=== PATIENT | female | born 1975 | race Caucasian/White ===

== ENCOUNTER 2019-05-17 05:48 | Day surgery (SDC) | payer OTHER ==
[2019-05-13 12:33] VITALS: BMI 33.0
[~2019-05-17 05:48] MED LIST: LACTATED RINGERS 1,000 ML IV SCH; LIDOCAINE 1% 20 ML VIAL (10MG/ML) FOR IV START INTRADERMA PRN; MIDAZOLAM 2 MG/2 ML VIAL IV PRN
[2019-05-17 06:32] VITALS: RESP 18; TEMP 97.1
[2019-05-17 06:45] LABS: Glucose,Whole Blood 117 mg/dL (75-99)
[2019-05-17] MEDS ORDERED: PROPOFOL 10 MG/ML 20 ML VIAL IV ONE (07:11)
--- NOTE | 2019-05-17 07:44 | PCN ---
PROCEDURE NOTE PROCEDURE: Bone marrow aspirate and biopsy. INDICATION: Leukocytosis. After obtaining consent from the patient, the procedure was performed in the endoscopy suite under general anesthesia performed by Anesthesia Team. The patient was put in the left lateral decubitus position. The right posterior iliac crest was localized, skin was cleansed with ChloraPrep, all sterile procedures were followed. Two mL of 2% Xylocaine were used for local anesthetic. Bone marrow needle was inserted, 15 mL of aspirate was obtained about 2 cm core biopsy was obtained without any difficulties. Pressure applied afterwards. There was negligible blood loss. Patient tolerated the procedure very well without any immediate without any immediate complications. MMODL / IJN: [id number] /
[2019-05-17 07:50] VITALS: BP 143/85; PULSE 64
[2019-05-17 08:33] LABS: Basophils # (A) 0.1 k/uL (0-0.2); Basophils % (A) 1 %; Eosinophils # (A) 0.3 k/uL (0-0.7); Eosinophils % (A) 3 %; HCT 36.2 % (34.0-46.0); Lymphocytes # (A) 3.1 k/uL (1.0-4.8); Lymphocytes % (A) 26 %; MCH 29.1 pg (25.0-35.0); MCHC 33.3 g/dL (31.0-37.0); MCV 87.4 fL (80.0-100.0); Mean Platelet Volume 7.1; Monocytes # (A) 0.7 k/uL (0-1.0); Monocytes % (A) 6 %; Neutrophils # (A) 7.4 k/uL (1.3-7.7); Neutrophils % (A) 62 %; Platelet Count 378 k/uL (150-450); RBC 4.14 m/uL (3.80-5.40); RDW 14.4 % (11.5-15.5); WBC 11.8 k/uL (3.8-10.6)
== END 2019-05-17 08:10 | disposition home or self-care (01) ==
LOC: OR 05:48
PROVIDERS: ATTEND Internal Medicine Hematology & Oncology
DX: Q99.1 46, XX true hermaphrodite (principal); E11.9 Type 2 diabetes mellitus without complications; E78.5 Hyperlipidemia, unspecified; J45.909 Unspecified asthma, uncomplicated; K21.9 Gastro-esophageal reflux disease without esophagitis; M19.90 Unspecified osteoarthritis, unspecified site; I10 Essential (primary) hypertension; Z83.2 Family history of diseases of the blood and blood-forming organs and certain disorders involving the immune mechanism; Z80.3 Family history of malignant neoplasm of breast; Z80.42 Family history of malignant neoplasm of prostate; Z80.41 Family history of malignant neoplasm of ovary; Z80.1 Family history of malignant neoplasm of trachea, bronchus and lung; Z87.891 Personal history of nicotine dependence; Z79.84 Long term (current) use of oral hypoglycemic drugs; Z79.899 Other long term (current) drug therapy; Z88.6 Allergy status to analgesic agent; Z88.5 Allergy status to narcotic agent; Z88.0 Allergy status to penicillin
CPT/HCPCS: 81025; 85025; 38222; J2704

== ENCOUNTER → 2019-10-13 | Outpatient (CLI) | payer OTHER ==
[2019-10-13 11:28] LABS: Basophils # (A) 0.2 k/uL (0-0.2); Basophils % (A) 2 %; Eosinophils # (A) 0.3 k/uL (0-0.7); Eosinophils % (A) 2 %; HCT 43.6 % (34.0-46.0); HGB 14.5 gm/dL (11.4-16.0); Lymphocytes # (A) 2.9 k/uL (1.0-4.8); Lymphocytes % (A) 22 %; MCH 30.8 pg (25.0-35.0); MCHC 33.2 g/dL (31.0-37.0); MCV 92.8 fL (80.0-100.0); Mean Platelet Volume 6.1; Monocytes # (A) 0.7 k/uL (0-1.0); Monocytes % (A) 5 %; Neutrophils % (A) 68 %; Platelet Count 433 k/uL (150-450); RBC 4.69 m/uL (3.80-5.40); RDW 12.8 % (11.5-15.5); WBC 13.2 k/uL (3.8-10.6)
== END | disposition home or self-care (01) ==
LOC: LABPAT 10:30
PROVIDERS: ATTEND Obstetrics & Gynecology
DX: Z01.812 Encounter for preprocedural laboratory examination (principal); Z01.818 Encounter for other preprocedural examination; N92.0 Excessive and frequent menstruation with regular cycle
CPT/HCPCS: 36415; 85025; 93005

== ENCOUNTER 2019-11-08 07:58 | Day surgery (SDC) | payer OTHER ==
[2019-10-15 14:08] VITALS: BMI 34.4
--- NOTE | 2019-11-02 14:18 | HP ---
HISTORY AND PHYSICAL H and P for surgery this upcoming Friday, the . This is a 44-year-old, white female, zero, who presented with heavy, long, clotty menses with clots. The patient underwent an endometrial biopsy in the office revealing a benign polyp, along with proliferative endometrial tissue. After considering all options, she would like to proceed with hysteroscopy, polypectomy, and endometrial ablation. All risks and benefits of the procedure have been discussed in detail, all questions answered. PAST MEDICAL HISTORY: Significant for anemia, arthritis, asthma, diabetes, hyperlipidemia, hypertension, polycystic ovarian syndrome. PAST SURGICAL HISTORY: Significant for appendectomy, colonoscopy, hernia repair, knee surgery, ovarian surgery, and tonsillectomy. CURRENT MEDICATIONS: 1. Actos 15 mg tablet daily. 2. Amaryl 4 mg tablet by mouth once daily. 3. Claritin 10 mg daily. 4. Iron 37.5 mg daily. 5. Flonase allergy relief 50 mcg nasal spray, one spray per nostril once daily as needed. 6. Glimepiride 4 mg orally daily. 7. Hydrochlorothiazide 25 mg daily. 8. Lipitor 10 mg daily. 9. Lisinopril 20 mg once daily. 10.Medrol 4 mg daily. 11.Metformin 1000 mg tablets twice daily with meals. 12.Norvasc 5 mg tablet once daily. 13.Ranitidine 150 mg oral capsule daily. 14.Vitamin B12 [address] of oral drops daily. 15.Zantac 150 mg orally daily. ALLERGIES: Allergies include AMOXICILLIN, CODEINE, DILAUDID, MORPHINE, PENICILLINS, PERCOCET, ULTRACET, VICODIN. Allergy reactions not listed. FAMILY HISTORY: Significant for prostate cancer, ovarian cancer, breast cancer, lung cancer, melanoma, anemia. REPRODUCTIVE HISTORY: Significant for menarche at the age of 18, no pregnancies in her reproductive life. SOCIAL HISTORY: The patient is , she currently smokes tobacco daily, she also vapes e-cigarettes daily, but denies alcohol or other drug use. PHYSICAL EXAMINATION: The patient is 5 feet 9 inches, 246 pounds, BMI 36, blood pressure 142/90, afebrile, pulse 94. HEENT exam reveals no thyromegaly, no obvious lymphadenopathy, good dentition. Breasts are bilaterally symmetric to inspection with no nipple discharge, skin changes, adenopathy, or discernable lesions or masses. Chest is clear to auscultation in all calderon anteriorly and posteriorly. Cardiovascular exam reveals regular rate. Normal rhythm. No obvious murmurs, clicks, or rubs. Gastrointestinal system, reveals an obese abdominal wall without rigidity or guarding. No organosplenomegaly, no herniorrhaphy. Active bowel sounds. External genitalia are normal for age, no discharge or inflammatory lesions are noted. Bladder is nontender, urethra is negative. Cervix is nulliparous, uterus is anteverted, anteflexed, small, smooth, mobile, negative adnexa to palpation bilaterally. Rectal exam reveals good sphincter tone, no hemorrhoids, no masses, FIT negative stool. No inguinal adenopathy is noted. Neurologic exam reveals good judgment and insight, normal mood and affect. IMPRESSION: Menorrhagia, with endometrial biopsy suggestive of benign endometrial polyps. Patient wishing surgical palliation. PLAN: We will proceed with hysteroscopy, polypectomy, and NovaSure endometrial ablation. The risks of surgery including bleeding, infection, perforation or damage to the cervix, ureters, bladder, rectum, uterus are all discussed. Risks of anesthesia including aspiration, nerve damage, or even remotely are also discussed. The ACOG pamphlet on this procedure is given for the patient's review. I believe all of her questions and concerns have been addressed and she understands our discussion without reservation. MMODL / IJN: [id number] /
[~2019-11-08 07:58] MED LIST changes: +DEXAMETHASONE SOD PHOSPHATE 10 MG/ML 1 ML VIAL IV ONE; -MIDAZOLAM 2 MG/2 ML VIAL IV PRN; +ONDANSETRON 4 MG/2 ML VIAL IVP ONE; +Pre Op ABX Message 1 EACH MISC MISCELLANE ONE; +SCOPOLAMINE 1.5MG/72HR PATCH TRANSDERM ONE; +fentaNYL (PF) 50 MCG/ML 2 ML AMP IV PRN
[2019-11-08] MEDS ORDERED: KETOROLAC 30 MG/ML 1 ML VIAL ONE (09:19)
[2019-11-08] MEDS ORDERED: SUCCINYLCHOLINE CHLORIDE 100 MG/5 ML SYR IV ONE (09:19)
[2019-11-08] MEDS ORDERED: LIDOCAINE 1% INJ 10MG/ML (20 ML MDV) ONE (09:19)
[2019-11-08] MEDS ORDERED: MIDAZOLAM 2 MG/2 ML VIAL ONE (09:19)
[2019-11-08] MEDS ORDERED: PROPOFOL 10 MG/ML 20 ML VIAL IV ONE (09:19)
[2019-11-08 09:33] LABS: Glucose,Whole Blood 132 mg/dL (75-99)
--- NOTE | 2019-11-08 09:52 | P.OP ---
Date of Procedure: 11/08/19 Preoperative Diagnosis: Menorrhagia, anemia, endometrial polyps. Postoperative Diagnosis: Same, pathology pending Procedure(s) Performed: D&C, polypectomy, NovaSure endometrial ablation, hysteroscopy Anesthesia: KARYN Surgeon: Domonique Olsen Estimated Blood Loss (ml): 5 IV fluids (ml): 100 Urine output (ml): 50 Pathology: other (Endometrial curettings and polyps) Condition: stable Disposition: PACU Operative Findings: Endometrial polyps Description of Procedure: Patient is brought to the operating suite where a general anesthetic is administered without difficulty. She's placed in the dorsal lithotomy position. The appropriate timeout was performed to assure proper patient and procedural identification. Urine hCG is negative, antibiotics are not deemed necessary. The cervix, vagina, perineal bodies are all prepped and draped in usual sterile fashion. Examination under anesthesia reveals a small anteverted uterus, negative adnexa bilaterally. The bladder was drained for 50 mL of clear yellow urine. Weighted speculum was placed into the vagina. Anterior lip of the cervix is grasped with a double-tooth tenaculum. Cervix sounds to a depth of 9 cm in the anteverted position. Cervix was gently and systematically dilated using Hanks dilators. The hysteroscope was placed and fluid is infused. The cavity is distended. There are multiple small polyps noted, no obvious fibroids or de fects. Hysteroscope was removed. A medium sharp curette is used and the cavity is thoroughly and systematically curettaged, curettings and polyps sent to pathology for evaluation. Polyp forcep is used to assure no additional tissue is present. The NovaSure wand is then placed into the cavity and seated properly. The uterine length of 6.5 cm, width of 4.3 cm is calibrated. The machine is enab led. For 32 seconds with a power the 154 W. the procedure is carried out. When it is completed, the wand is reduced and removed. Hysteroscope was once again placed and the cavity is noted to be uniformly blanched. All instrumentation is removed from the vagina. All sponge needle and enhancement counts are correct. Patient is brought back to the recovery room in very good condition with stable vital signs including a blood pressure of 148/97, pulse 100. Toradol is given prior to leaving the operative suite. She will follow-up with me in the office in 2 weeks.
[2019-11-08 10:08] VITALS: TEMP 96.8
[2019-11-08 10:14] LABS: Glucose,Whole Blood 159 mg/dL (75-99)
[2019-11-08 11:29] VITALS: BP 156/89; PULSE 88; RESP 17
== END 2019-11-08 11:58 | disposition home or self-care (01) ==
LOC: OR 07:58
PROVIDERS: ATTEND Obstetrics & Gynecology
DX: N92.0 Excessive and frequent menstruation with regular cycle (principal); N84.0 Polyp of corpus uteri; D64.9 Anemia, unspecified; I10 Essential (primary) hypertension; E78.5 Hyperlipidemia, unspecified; F17.210 Nicotine dependence, cigarettes, uncomplicated; J45.909 Unspecified asthma, uncomplicated; K21.9 Gastro-esophageal reflux disease without esophagitis; Z79.1 Long term (current) use of non-steroidal anti-inflammatories (NSAID); Z79.899 Other long term (current) drug therapy; E11.9 Type 2 diabetes mellitus without complications; Z79.84 Long term (current) use of oral hypoglycemic drugs; Z88.6 Allergy status to analgesic agent; Z88.1 Allergy status to other antibiotic agents; Z88.5 Allergy status to narcotic agent; E28.2 Polycystic ovarian syndrome; Z79.51 Long term (current) use of inhaled steroids; Z80.41 Family history of malignant neoplasm of ovary; Z80.3 Family history of malignant neoplasm of breast; Z80.1 Family history of malignant neoplasm of trachea, bronchus and lung; Z80.8 Family history of malignant neoplasm of other organs or systems; E66.9 Obesity, unspecified; Z68.36 Body mass index [BMI] 36.0-36.9, adult
CPT/HCPCS: 81025; 88305; 58563; J2250; J1100; J2405; J2001; J1885; J0330; J2704

== ENCOUNTER → 2019-11-23 | Outpatient (CLI) | payer OTHER ==
--- NOTE | 2019-11-25 14:16 | MM ---
Reason for exam: screening (asymptomatic). Last mammogram was performed 1 year and 2 months ago. History: Patient is nulliparous. Family history of breast cancer in maternal aunt and breast cancer in maternal cousin. Took hormonal contraceptives for 6 months. Took other hormone for 2 years. Physical Findings: A clinical breast exam by your physician is recommended on an annual basis and results should be correlated with mammographic findings. MG Screening Mammo w CAD Bilateral CC and MLO view(s) were taken. Prior study comparison: September 15, 2018, mammogram, performed at [facility]. The breast tissue is heterogeneously dense. This may lower the sensitivity of mammography. No significant changes when compared with prior studies. ASSESSMENT: Negative, BI-RAD 1 RECOMMENDATION: Routine screening mammogram of both breasts in 1 year.
== END | disposition home or self-care (01) ==
LOC: RADMAMWWP 07:34
PROVIDERS: ATTEND Obstetrics & Gynecology
DX: Z12.31 Encounter for screening mammogram for malignant neoplasm of breast (principal); Z80.3 Family history of malignant neoplasm of breast
CPT/HCPCS: 77067

== ENCOUNTER 2020-09-27 16:30 | Emergency (ER) | payer OTHER ==
[2020-09-27 16:42] VITALS: BP 147/101; PULSE 103; RESP 20; TEMP 98.9
--- NOTE | 2020-09-27 18:05 | XR ---
EXAMINATION TYPE: XR toes LT DATE OF EXAM: 09/27/2020 COMPARISON: None HISTORY: Great toe injury, nail ripped off by door TECHNIQUE: Three-view left great toe FINDINGS: No acute fracture or dislocation is evident. The osseous structures are intact. Soft tissue s appear normal. The nail is dislocated from its normal position IMPRESSION: 1. Dislocated nail like her left great toe. No acute osseous abnormality is evident.
--- NOTE | 2020-09-27 18:12 | ED ---
Skin/Abscess/FB HPI - General Chief complaint: Skin/Abscess/Foreign Body Stated complaint: toe injury Time Seen by Provider: 09/27/20 17:22 Source: patient Mode of arrival: ambulatory Limitations: no limitations - History of Present Illness Initial comments: Patient is a 45-year-old female, or diabetes, presenting to emergency Department with complaints of injury to her left great toe. Patient states she stubbed her toe on a door and felt her now,. Patient is having some mild pain in her great toe but mostly around the toenail. There is no active bleeding, she is not on blood thinners. She denies any other injuries today. She has no further complaints. - Related Data Home Medications Medication Instructions Recorded Confirmed Atorvastatin Calcium [Lipitor] 10 mg PO HS 05/18/14 05/26/20 Glimepiride [Amaryl] 4 mg PO AC-SUPPER 05/18/14 05/26/20 Ranitidine HCl 150 mg PO QAM PRN 05/18/14 05/26/20 amLODIPine BESYLATE [Norvasc] 5 mg PO QAM 05/18/14 05/26/20 hydroCHLOROthiazide [Hydrodiuril] 25 mg PO DAILY 05/18/14 05/26/20 lisinopriL [Prinivil] 20 mg PO BID 05/18/14 05/26/20 metFORMIN HCL 1,000 mg PO BID 05/18/14 05/26/20 Ferrous Gluconate 324 mg PO DAILY 05/13/19 05/26/20 Fluticasone Nasal [place] [Flonase 1 spray EA NOSTRIL BID 05/13/19 05/26/20 Nasal [place]] Ibuprofen [Motrin Ib] 400 mg PO Q6H PRN 05/13/19 05/26/20 Pioglitazone [Actos] 15 mg PO AC-SUPPER 05/13/19 05/26/20 Loratadine [Claritin] 10 mg PO DAILY 09/14/19 05/26/20 Ascorbic Acid [Vitamin C] 1,000 mg PO DAILY 10/15/19 05/26/20 Calcium/Magnesium/Zinc 1 each PO BID 10/15/19 05/26/20 [Mtkyjxq-Nkavdtmor-Pwkk Tablet] Cyanocobalamin (Vitamin B-12) 1,000 mcg PO DAILY 10/15/19 05/26/20 [Vitamin B-12] Vitamin C/Biotin [Hair, Skin and 1 tab PO BID 10/15/19 05/26/20 Nails] Allergies Allergy/AdvReac Type Severity Reaction Status Date / Time amoxicillin Allergy Rash/Hives Verified 09/27/20 16:42 codeine Allergy Rash/Hives, Verified 09/27/20 16:42 Nausea & Vomiting hydrocodone bitartrate Allergy Nausea & Verified 09/27/20 16:42 [From Vicodin] Vomiting, Rash Morpholine Analogues Allergy Nausea & Verified 09/27/20 16:42 Vomiting, Rash oxycodone HCl [From Percocet] Allergy Nausea & Verified 09/27/20 16:42 Vomiting, Rash tramadol HCl [From Ultracet] Allergy Dyspnea Verified 09/27/20 16:42 Review of Systems ROS Statement: Those systems with pertinent positive or pertinent negative responses have been documented in the HPI. ROS Other: All systems not noted in ROS Statement are negative. Past Medical History Past Medical History: Asthma Additional Past Medical History / Comment(s): ASTHMA CHILD. HX ANEMIA. POLYCYSTIC OVARY. WBC HAS BEEN ELEVATED FOR FEW YEARS. History of Any Multi-Drug Resistant Organisms: None Reported Past Surgical History: Hernia Repair, Orthopedic Surgery Additional Past Surgical History / Comment(s): SEV HERNIA SURG. WISDOM TEETH. LT KNEE SCOPE. Past Anesthesia/Blood Transfusion Reactions: Family History of Problems w/ An esthesia, Motion Sickness, Postoperative Nausea & Vomiting (PONV) Additional Past Anesthesia/Blood Transfusion Reaction / Comment(s): SEVERE PONV. FAMILY HAS PONV. Past Psychological History: No Psychological Hx Reported Smoking Status: Current every day smoker Past Alcohol Use History: Rare Past Drug Use History: None Reported - Past Family History Mother Family Medical History: Cancer Additional Family Medical History / Comment(s): SKIN CA, BASAL & SQUAMOUS. General Exam - General Exam Comments Initial Comments: GENERAL: Patient is well-developed and well-nourished. Patient is nontoxic and in no acute distress. HEAD: Atraumatic, normocephalic. EYES: Pupils equal round and reactive to light, extraocular movements intact, sclera anicteric, conjunctiva are normal. Eyelids were unremarkable. ENT: TMs normal, nares patent, oropharynx clear without exudates. Moist mucous membranes. NECK: Normal range of motion, supple without lymphadenopathy or JVD. LUNGS: Unlabored respirations. Breath sounds clear to auscultation bilaterally and equal. No wheezes rales or rhonchi. HEART: Regular rate and rhythm without murmurs, rubs or gallops. ABDOMEN: Soft, nontender, normoactive bowel sounds. No guarding, no rebound. No masses appreciated. : Deferred MUSCULOSKELETAL: Normal extremities with adequate strength and normal range of motion, no pitting or edema. No clubbing or cyanosis. No pain to palpation of the left great toe. Patient's left great toe nail is lifted up from its nail bed, the distal portion is still firmly attached to the nailbed. There is no active bleeding. NEUROLOGICAL: Patient is alert and oriented x 3. Normal speech, normal gait. PSYCH: Normal mood, normal affect. SKIN: Warm, Dry, normal turgor, no rashes or lesions noted. Limitations: no limitations Course Vital Signs 09/27/20 16:39 Temperature 98.9 F Pulse Rate 103 H Respiratory 20 Rate Blood Pressure 147/101 O2 Sat by Pulse 98 Oximetry Medical Decision Making - Medical Decision Making Patient is a 45-year-old female here with an injury to her left great toenail after she stubbed it on a door. X-rays of the left foot reveal no acute fractures dislocations. Her toenail is lifted up over it is firmly attached at the base. I discussed with patient that I recommend keeping the toenail in place for the first few weeks to allow the nail to start to grow out. She can follow-up with her PCP or environmental systems coordinator to ultimately have the toenail removed at this is problematic. Patient is in agreement this plan of care. She is stable for discharge. Disposition Clinical Impression: Injury of toenail of left foot Disposition: HOME SELF-CARE Condition: Stable Instructions (If sedation given, give patient instructions): Nail Avulsion (ED) Additional Instructions: Please return to the Emergency Department if symptoms worsen or any other concerns. Recommend keeping a Band-Aid over the left great toenail. May do warm soaks once a day. Follow-up with PCP or environmental systems coordinator as discussed. Is patient prescribed a controlled substance at d/c from ED?: No Referrals: Josy Rodriguez MD [Primary Care Provider] - 1-2 days
== END 2020-09-27 19:09 | disposition home or self-care (01) ==
LOC: EC 16:30
DX: S99.922A Unspecified injury of left foot, initial encounter (principal); F17.200 Nicotine dependence, unspecified, uncomplicated; J45.909 Unspecified asthma, uncomplicated; Z79.51 Long term (current) use of inhaled steroids; Z88.0 Allergy status to penicillin; Z88.5 Allergy status to narcotic agent; Z88.6 Allergy status to analgesic agent; Z88.8 Allergy status to other drugs, medicaments and biological substances; W22.8XXA Striking against or struck by other objects, initial encounter; Y92.009 Unspecified place in unspecified non-institutional (private) residence as the place of occurrence of the external cause
CPT/HCPCS: 99283

== ENCOUNTER → 2020-10-09 | Outpatient (CLI) | payer OTHER ==
[2020-10-09 09:36] LABS: African American GFR (CKD) >90 (>60 ml/min/1.73 sqM); Blood Urea Nitrogen 16 mg/dL (7-17); Non-African American GFR(CKD) >90 (>60 ml/min/1.73 sqM)
--- NOTE | 2020-10-09 11:26 | CT ---
EXAMINATION TYPE: CT abdomen pelvis w con DATE OF EXAM: 10/09/2020 COMPARISON: None HISTORY: fatigue, elevated WBC, anemia, epigastric pain CT DLP: 2180.9 mGycm CONTRAST: CT scan of the abdomen and pelvis is performed with Oral Contrast and with IV Contrast, patient injec aline with 100 mL of Isovue 300. FINDINGS: LUNG BASES-: No visible nodule. No infiltrate. LIVER/GB: No calcified gallstones. No space occupying hepatic lesion. Biliary tree is of normal ca liber. PANCREAS: No inflammation. No distinct mass. SPLEEN: No splenic enlargement. No lesion seen. ADRENALS: No nodule. No thickening. KIDNEYS/BLADDER: No hydronephrosis. No nephrolithiasis. No distinct renal mass. Urinary bladder is thick-walled and this may be related to poor distention. BOWEL: Normal appendix. Normal bowel caliber. No inflammation. GENITAL ORGANS: 3.8 cm Mixed attenuation lesion right ovary. Further evaluation with ultrasound is re commended. Left ovary and uterus are unremarkable. LYMPH NODES: No greater than 1cm abdominal or pelvic lymph nodes are appreciated. AORTA: No significant abnormality. OSSEOUS STRUCTURES: No significant abnormality is seen. OTHER: Ventral fat-containing hernia. IMPRESSION: 1. Nonspecific right ovarian lesion. Ultrasound recommended for further evaluation. 2. Ventral abdominal wall fat-containing hernia.
== END | disposition home or self-care (01) ==
LOC: RADCTMAIN 08:55
PROVIDERS: ATTEND Internal Medicine Hematology & Oncology
DX: K43.9 Ventral hernia without obstruction or gangrene (principal); N83.8 Other noninflammatory disorders of ovary, fallopian tube and broad ligament; E11.9 Type 2 diabetes mellitus without complications
CPT/HCPCS: 82565; 84520; 74177; 36415; Q9967

== ENCOUNTER → 2020-12-28 | Outpatient (CLI) | payer OTHER ==
--- NOTE | 2020-12-28 11:52 | US ---
EXAMINATION TYPE: US pelvic complete DATE OF EXAM: 12/28/2020 COMPARISON: CT 10/09/2020 CLINICAL HISTORY: N83.9 Lesion of right Ovary. right ovarian cyst on CT 10/13, no symptoms TECHNIQUE: TA. Transabdominal sonographic images of the pelvis were acquired. Date of LMP: 2018 EXAM MEASUREMENTS: Uterus: 8.3 x 3.0 x 4.3 cm Endometrial Stripe: 0.5 cm Right Ovary: 2.8 x 3.1 x 2.0 cm. No suspicious cysts. Left Ovary: 2.7 x 2.1 x 1.9 cm 1. Uterus: Anteverted wnl 2. Endometrium: wnl 3. Right Ovary: wnl 4. Left Ovary: wnl 5. Bilateral Adnexa: wnl 6. Posterior cul-de-sac: wnl IMPRESSION: 1. Normal pelvic ultrasound
== END | disposition home or self-care (01) ==
LOC: RADUSWWP 10:54
PROVIDERS: ATTEND Family Medicine
DX: N83.9 Noninflammatory disorder of ovary, fallopian tube and broad ligament, unspecified (principal)
CPT/HCPCS: 76856

== ENCOUNTER → 2021-01-09 | Day surgery (SDC) | payer OTHER ==
[2021-01-05 09:43] VITALS: BMI 37.5
[~2021-01-09] MED LIST changes: -DEXAMETHASONE SOD PHOSPHATE 10 MG/ML 1 ML VIAL IV ONE; +LIDOCAINE 1% (10MG/ML) FOR IV START INTRADERMA PRN; -LIDOCAINE 1% 20 ML VIAL (10MG/ML) FOR IV START INTRADERMA PRN; +MIDAZOLAM 2 MG/2 ML VIAL IV PRN; -ONDANSETRON 4 MG/2 ML VIAL IVP ONE; +PROPOFOL 10 MG/ML 20 ML VIAL IV ONE; -Pre Op ABX Message 1 EACH MISC MISCELLANE ONE; -SCOPOLAMINE 1.5MG/72HR PATCH TRANSDERM ONE; -fentaNYL (PF) 50 MCG/ML 2 ML AMP IV PRN
[2021-01-09 09:25] VITALS: TEMP 97.8
[2021-01-09 09:29] LABS: Glucose,Whole Blood 235 mg/dL (75-99)
--- NOTE | 2021-01-09 10:06 | P.PCN ---
Date of Procedure: 01/09/21 Description of Procedure: Brief history: Patient is a pleasant 45-year-old female presenting for outpatient EGD and colonoscopy for evaluation of epigastric abdominal pain and iron deficiency anemia. Patient was long-standing history of epigastric pain and reflux. He also has been followed for anemia and is on iron supplementation. She has had prior EGD and colonoscopy in the past. Procedure performed: Esophagogastroduodenoscopy with biopsy Colonoscopy Estimated blood loss: Minimal. Preoperative diagnosis: Epigastric abdominal pain, iron deficiency anemia Anesthesia: MAC Procedure: After informed consent was obtained from the patient was brought into the endoscopy unit and IV sedation was administered by anesthesia under continuous monitoring. Initially upper endoscopy was done. The Olympus GF 190 video endoscope was inserted into the mouth and esophagus intubated without any difficulty and was gradually advanced into the stomach and duodenum and carefully examined. The bulb and second part of the duodenum appeared normal, with biopsies taken. The scope was then withdrawn into the stomach adequately insufflated with air and upon careful examination the antrum and body, cardia and fundus appeared normal, except for some mild punctate erythema in the antrum and body suggestive of mild gastritis biopsies taken. The scope was then withdrawn into the esophagus. The GE junction was located at 40 cm to the incisors and biopsies . It appeared regular with no erythema erosions or ulcerations. Rest of the esophagus appeared normal. Patient tolerated the procedure well. At this time the patient continued to remain sedation. Initial digital rectal examination was normal. Olympus CF 190 video colonoscope was then inserted into the rectum and gradually advanced to the cecum without any difficulty. Careful examination was performed as the scope was gradually being withdrawn. The prep was excellent. The cecum, ascending colon, transverse colon, descending colon, sigmoid colon and rectum appeared normal, with diminutive 1 mm rectal polyp removed with cold forcep polypectomy. Retroflexion was performed in the rectum and no lesions were noted and low-grade internal hemorrhoids seen. Patient tolerated the procedure well. Impression: 1. Mild gastritis. Biopsies of the duodenum, antrum and body GE junction. 2. Diminutive rectal polyp removed with cold forcep polypectomy. Low-grade internal hemorrhoids. Recommendations: Findings of this examination were discussed with the patient as well as her family. Okay to resume diet. Okay to resume medications. Await pathology from biopsies and polypectomy. Recommend repeat colonoscopy in 7 years pending pathology from polypectomy.
[2021-01-09 10:41] VITALS: BP 128/84; PULSE 85; RESP 18
[2021-01-09 10:49] LABS: Glucose,Whole Blood 212 mg/dL (75-99)
== END ==
LOC: ORWHC2ENDO 08:39
PROVIDERS: ATTEND Internal Medicine
DX: K62.1 Rectal polyp (principal); K64.8 Other hemorrhoids; K21.00 Gastro-esophageal reflux disease with esophagitis, without bleeding; K29.50 Unspecified chronic gastritis without bleeding; D50.9 Iron deficiency anemia, unspecified; I10 Essential (primary) hypertension; G47.33 Obstructive sleep apnea (adult) (pediatric); F17.210 Nicotine dependence, cigarettes, uncomplicated; E11.9 Type 2 diabetes mellitus without complications; Z88.0 Allergy status to penicillin; Z88.1 Allergy status to other antibiotic agents; Z88.5 Allergy status to narcotic agent; Z79.899 Other long term (current) drug therapy; Z79.4 Long term (current) use of insulin; Z79.1 Long term (current) use of non-steroidal anti-inflammatories (NSAID); Z99.89 Dependence on other enabling machines and devices; Z90.49 Acquired absence of other specified parts of digestive tract; Z98.890 Other specified postprocedural states; Z90.89 Acquired absence of other organs; Z91.89 Other specified personal risk factors, not elsewhere classified
CPT/HCPCS: 81025; 88305; 45380; 43239; J2704

== ENCOUNTER → 2021-02-23 | Outpatient (CLI) | payer OTHER ==
--- NOTE | 2021-02-26 10:47 | MM ---
Reason for exam: screening (asymptomatic). Last mammogram was performed 1 year and 3 months ago. History: Patient is nulliparous. Family history of breast cancer in maternal aunt and breast cancer in maternal cousin. Took hormonal contraceptives for 6 months. Took other hormone for 2 years. Physical Findings: A clinical breast exam by your physician is recommended on an annual basis and results should be correlated with mammographic findings. MG 3D Screening Mammo W/Cad Bilateral CC and MLO view(s) were taken. Prior study comparison: November 23, 2019, bilateral MG screening mammo w CAD. September 15, 2018, mammogram, performed at [facility]. The breast tissue is heterogeneously dense. This may lower the sensitivity of mammography. There is no discrete abnormality. No significant changes when compared with prior studies. ASSESSMENT: Negative, BI-RAD 1 RECOMMENDATION: Routine screening mammogram of both breasts in 1 year.
== END | disposition home or self-care (01) ==
LOC: RADMAMWWP 11:04
PROVIDERS: ATTEND Family Medicine
DX: Z12.31 Encounter for screening mammogram for malignant neoplasm of breast (principal)
CPT/HCPCS: 77063; 77067

== ENCOUNTER 2021-06-05 18:00 | Emergency (ER) | payer OTHER ==
[2021-06-05 18:34] VITALS: BP 155/89; PULSE 90; RESP 16; TEMP 97.5
--- NOTE | 2021-06-05 19:38 | ED ---
Wound/Laceration HPI - General Chief Complaint: Wound/Laceration Stated Complaint: Lip Lac Time Seen by Provider: 06/05/21 19:03 Source: patient Mode of arrival: ambulatory Limitations: no limitations - History of Present Illness Initial Comments: 45 year-old male patient presents to the emergency department today for evaluation of facial injury. States around 4:00 this afternoon she was pulling fence poles out of the ground when the chain broke on the pole puller and came back and struck her in the face. States that she has a laceration on the inside of her upper lip that won't stop bleeding. She denies any loss of consciousness with the injury. Denies any injury to the teeth. Denies headache or neck pain. Denies any other injuries. States she is unsure when her last tetanus vaccine was given. - Related Data Home Medications Medication Instructions Recorded Confirmed Atorvastatin Calcium [Lipitor] 10 mg PO HS 05/18/14 01/09/21 amLODIPine BESYLATE [Norvasc] 5 mg PO QAM 05/18/14 01/09/21 hydroCHLOROthiazide [Hydrodiuril] 25 mg PO DAILY 05/18/14 01/09/21 lisinopriL [Prinivil] 20 mg PO BID 05/18/14 01/09/21 metFORMIN HCL 1,000 mg PO BID 05/18/14 01/09/21 Ferrous Gluconate 324 mg PO DAILY 05/13/19 01/09/21 Fluticasone Nasal [place] [Flonase 1 spray EA NOSTRIL BID 05/13/19 01/09/21 Nasal [place]] Ibuprofen [Motrin Ib] 400 mg PO Q6H PRN 05/13/19 01/09/21 Pioglitazone [Actos] 15 mg PO AC-SUPPER 05/13/19 01/09/21 Loratadine [Claritin] 10 mg PO DAILY 09/14/19 01/09/21 Ascorbic Acid [Vitamin C] 1,000 mg PO DAILY 10/15/19 01/09/21 Calcium/Magnesium/Zinc 1 each PO BID 10/15/19 01/09/21 [Ghuqhxz-Kkzsrvckw-Iriu Tablet] Cyanocobalamin (Vitamin B-12) 1,000 - 2,000 mcg PO DAILY 10/15/19 01/09/21 [Vitamin B-12] Vitamin C/Biotin [Hair, Skin and 1 tab PO BID 10/15/19 01/09/21 Nails] Ergocalciferol (Vitamin D2) 1,250 mcg PO Q14D 01/05/21 01/09/21 [Vitamin D2 (50,000 Iu)] Insulin Glargine,Hum.rec.anlog 10 unit SQ BID 01/05/21 01/09/21 [Lantus Solostar] Allergies Allergy/AdvReac Type Severity Reaction Status Date / Time amoxicillin Allergy Rash/Hives Verified 06/05/21 18:34 cephalexin [From Keflex] Allergy Rash/Hives Verified 06/05/21 18:34 clavulanic acid Allergy Rash/Hives Verified 06/05/21 18:34 [From Augmentin] codeine Allergy Rash/Hives, Verified 06/05/21 18:34 Nausea & Vomiting hydrocodone bitartrate Allergy Nausea & Verified 06/05/21 18:34 [From Vicodin] Vomiting, Rash morphine Allergy Nausea & Verified 06/05/21 18:34 Vomiting oxycodone HCl [From Percocet] Allergy Nausea & Verified 06/05/21 18:34 Vomiting, Rash tramadol HCl [From Ultracet] Allergy Dyspnea Verified 06/05/21 18:34 Review of Systems ROS Statement: Those systems with pertinent positive or pertinent negative responses have been documented in the HPI. ROS Other: All systems not noted in ROS Statement are negative. Past Medical History Past Medical History: Asthma, Diabetes Mellitus, GERD/Reflux, Hypertension, Sleep Apnea/CPAP/BIPAP Additional Past Medical History / Comment(s): ASTHMA CHILD. HX ANEMIA. POLYCYSTIC OVARY. MIGRAINE HEADACHE, HISTORY OF WBC BEING ELEVATED, History of Any Multi-Drug Resistant Organisms: None Reported Past Surgical History: Appendectomy, Hernia Repair, Orthopedic Surgery, Tonsillectomy, Uterine Ablation Additional Past Surgical History / Comment(s): SEVRAL HERNIA SURG. WISDOM TEETH EXTRACTED, LT KNEE ARTHROSCOPY Past Anesthesia/Blood Transfusion Reactions: Family History of Problems w/ Anesthesia, Motion Sickness, Postoperative Nausea & Vomiting (PONV) Additional Past Anesthesia/Blood Transfusion Reaction / Comment(s): SEVERE PONV. FAMILY HAS PONV. Past Psychological History: No Psychological Hx Reported Smoking Status: Current every day smoker Past Alcohol Use History: None Reported Past Drug Use History: None Reported - Past Family History Mother Family Medical History: Cancer Additional Family Medical History / Comment(s): SKIN CA, BASAL & SQUAMOUS. General Exam Limitations: no limitations General appearance: alert, in no apparent distress, other (This is a well- developed, well-nourished adult female patient in no acute distress. Vital signs upon presentation are temperature 97.5F, pulse 90, respirations 16, blood pressure 155/89, pulse ox 98% on room air.) Head exam: Present: atraumatic, normocephalic, normal inspection Eye exam: Present: normal appearance, PERRL, EOMI. Absent: scleral icterus, conjunctival injection, periorbital swelling ENT exam: Present: normal oropharynx, mucous membranes moist, other (There 3 tiny lacerations noted to the external upper lip. There is 2 cm laceration noted to the mucosal surface of the upper lip in the center. Mild bleeding. No dental injury. ) Neck exam: Present: normal inspection, full ROM, other (Nontender, no step-off, no deformity to firm midline palpation of the posterior cervical spine. Full range of motion without pain or limitation.). Absent: tenderness, meningismus, lymphadenopathy Respiratory exam: Present: normal lung sounds bilaterally. Absent: respiratory distress, wheezes, rales, rhonchi, stridor Cardiovascular Exam: Present: regular rate, normal rhythm, normal heart sounds. Absent: systolic murmur, diastolic murmur, rubs, gallop, clicks Neurological exam: Present: alert, oriented X3, CN II-XII intact Psychiatric exam: Present: normal affect, normal mood Skin exam: Present: warm, dry, intact, normal color. Absent: rash Course Vital Signs 06/05/21 18:29 Temperature 97.5 F L Pulse Rate 90 Respiratory 16 Rate Blood Pressure 155/89 O2 Sat by Pulse 98 Oximetry - Reevaluation(s) Reevaluation #1: 06/05/21 19:25 Refused Tetanus vaccine. Procedures - Laceration Laceration #1 Consent Obtained: verbal consent Indication: laceration Site: lip Size (cm): 2 Description: linear Depth: [id number] Anesthetic Used: lidocaine 1% Anesthesia Technique: local infiltration Amount (mls): 2 Pre-repair: irrigated extensively Type of Sutures: vicryl Size of Sutures: 5-0 Number of Sutures: 2 Technique: simple, interrupted Patient Tolerated Procedure: well, no complications Medical Decision Making - Medical Decision Making 45-year-old female patient presents for evaluation of upper lip injury. Physical examination did reveal 3 tiny lacerations noted to the central upper lip externally. She got 2 cm internal lip laceration. Did have some bleeding. This was cleansed, 2 Vicryl sutures were placed. No evidence for dental injury. She had no head injury. She'll be discharged to follow up with her primary care physician for recheck in 1-2 days. Return parameters were discussed in detail. She verbalizes understanding and agrees with this plan. Case discussed my attending Dr. Palumbo. Disposition Clinical Impression: Lip laceration Disposition: HOME SELF-CARE Condition: Good Instructions (If sedation given, give patient instructions): Laceration (ED) Additional Instructions: Keep wounds clean and dry. The stitches dissolve on their own, can take up to 60 days. Follow up with the physician for recheck in 1-2 days. Return for any new, worsening, or concerning symptoms. Is patient prescribed a controlled substance at d/c from ED?: No Referrals: Josy Rodriguez MD [Primary Care Provider] - 1-2 days Time of Disposition: 19:56
[2021-06-05] MEDS ORDERED: LIDOCAINE 1% INJ 10MG/ML (20 ML MDV) SQ ONE (19:45)
== END 2021-06-05 20:16 | disposition home or self-care (01) ==
LOC: EC 18:00
DX: S01.511A Laceration without foreign body of lip, initial encounter (principal); J45.909 Unspecified asthma, uncomplicated; E11.9 Type 2 diabetes mellitus without complications; K21.9 Gastro-esophageal reflux disease without esophagitis; G47.33 Obstructive sleep apnea (adult) (pediatric); Z99.81 Dependence on supplemental oxygen; I10 Essential (primary) hypertension; F17.200 Nicotine dependence, unspecified, uncomplicated; W22.8XXA Striking against or struck by other objects, initial encounter
CPT/HCPCS: 12011; 99282; 96372; J2001; 96360; 96361; 99285

== ENCOUNTER 2023-10-01 17:56 | Emergency (ER) | payer OTHER ==
[2023-10-01] MEDS ORDERED: DIPH,PERTUS(ACELL)TETVAC-LF 0.5 ML VIAL IM ONE (19:44)
--- NOTE | 2023-10-01 19:46 | ED ---
General Adult HPI - General Stated complaint: right index finger cut Time Seen by Provider: 10/01/23 19:44 Source: patient, RN notes reviewed - History of Present Illness Initial comments: 48 year old female presents to the emergency department for chief complaint of right index finger laceration. She states this occurred around 5pm today. She reports that she cut her finger with a can. She states that it continues to bleed. Her last tetanus vaccination was >10 years ago. - Related Data Home Medications Medication Instructions Recorded Confirmed Atorvastatin Calcium [Lipitor] 10 mg PO HS 05/18/14 01/09/21 amLODIPine BESYLATE [Norvasc] 5 mg PO QAM 05/18/14 01/09/21 hydroCHLOROthiazide [Hydrodiuril] 25 mg PO DAILY 05/18/14 01/09/21 lisinopriL [Prinivil] 20 mg PO BID 05/18/14 01/09/21 metFORMIN HCL [Glucophage] 1,000 mg PO BID 05/18/14 01/09/21 Ferrous Gluconate 324 mg PO DAILY 05/13/19 01/09/21 Fluticasone Nasal [place] [Flonase 1 spray EA NOSTRIL BID 05/13/19 01/09/21 Nasal [place]] Ibuprofen [Motrin Ib] 400 mg PO Q6H PRN 05/13/19 01/09/21 Pioglitazone [Actos] 15 mg PO AC-SUPPER 05/13/19 01/09/21 Loratadine [Claritin] 10 mg PO DAILY 09/14/19 01/09/21 Ascorbic Acid [Vitamin C] 1,000 mg PO DAILY 10/15/19 01/09/21 Calcium/Magnesium/Zinc 1 each PO BID 10/15/19 01/09/21 [Bravstk-Ksrstbxgr-Lskb Tablet] Cyanocobalamin (Vitamin B-12) 1,000 - 2,000 mcg PO DAILY 10/15/19 01/09/21 [Vitamin B-12] Vitamin C/Biotin [Hair, Skin and 1 tab PO BID 10/15/19 01/09/21 Nails] Ergocalciferol (Vitamin D2) 1,250 mcg PO Q14D 01/05/21 01/09/21 [Vitamin D2 (50,000 Iu)] Insulin Glargine,Hum.rec.anlog 10 unit SQ BID 01/05/21 01/09/21 [Lantus Solostar] Allergies Allergy/AdvReac Type Severity Reaction Status Date / Time amoxicillin Allergy Rash/Hives Verified 10/01/23 20:02 cephalexin [From Keflex] Allergy Rash/Hives Verified 10/01/23 20:02 clavulanic acid Allergy Rash/Hives Verified 10/01/23 20:02 [From Augmentin] codeine Allergy Rash/Hives, Verified 10/01/23 20:02 Nausea & Vomiting hydrocodone bitartrate Allergy Nausea & Verified 10/01/23 20:02 [From Vicodin] Vomiting, Rash morphine Allergy Nausea & Verified 10/01/23 20:02 Vomiting oxycodone HCl [From Percocet] Allergy Nausea & Verified 10/01/23 20:02 Vomiting, Rash tramadol HCl [From Ultracet] Allergy Dyspnea Verified 10/01/23 20:02 Review of Systems ROS Statement: Those systems with pertinent positive or pertinent negative responses have been documented in the HPI. ROS Other: All systems not noted in ROS Statement are negative. Past Medical History Past Medical History: Asthma, Diabetes Mellitus, GERD/Reflux, Hypertension, Sleep Apnea/CPAP/BIPAP Additional Past Medical History / Comment(s): ASTHMA CHILD. HX ANEMIA. POLYCYSTIC OVARY. MIGRAINE HEADACHE, HISTORY OF WBC BEING ELEVATED, History of Any Multi-Drug Resistant Organisms: None Reported Past Surgical History: Appendectomy, Hernia Repair, Orthopedic Surgery, Tonsillectomy, Uterine Ablation Additional Past Surgical History / Comment(s): SEVRAL HERNIA SURG. WISDOM TEETH EXTRACTED, LT KNEE ARTHROSCOPY Past Anesthesia/Blood Transfusion Reactions: Family History of Problems w/ Anesthesia, Motion Sickness, Postoperative Nausea & Vomiting (PONV) Additional Past Anesthesia/Blood Transfusion Reaction / Comment(s): SEVERE PONV. FAMILY HAS PONV. Past Psychological History: No Psychological Hx Reported Smoking Status: Current every day smoker Past Alcohol Use History: None Reported Past Drug Use History: None Reported - Past Family History Mother Family Medical History: Cancer Additional Family Medical History / Comment(s): SKIN CA, BASAL & SQUAMOUS. General Exam - General Exam Comments Initial Comments: Visual Physical Exam Vital signs reviewed General: Well-appearing, nontoxic, no acute distress. Head: Normocephalic, atraumatic Eyes: PERRLA, EOMI ENT: Airway patent Chest: Nonlabored breathing Skin: No visual rash, normal skin tone Neuro: Alert and oriented 3 Musculoskeletal: No gross abnormalities Limitations: no limitations General appearance: alert, in no apparent distress Head exam: Present: atraumatic, normocephalic, normal inspection Eye exam: Present: normal appearance, PERRL, EOMI. Absent: scleral icterus, conjunctival injection, periorbital swelling Extremities exam: Present: normal inspection, full ROM, normal capillary refill, other (Laceration 0.5 cm to right index finger lateral to the fingernail). Absent: tenderness Psychiatric exam: Present: normal affect, normal mood Skin exam: Present: warm, dry, normal color. Absent: intact (Laceration 0.5 cm to right index finger lateral to the fingernail) Course Vital Signs 10/01/23 10/01/23 19:57 20:32 Temperature 98.4 F Pulse Rate 80 88 Respiratory 18 18 Rate Blood Pressure 174/124 170/114 O2 Sat by Pulse 99 Oximetry Medical Decision Making - Medical Decision Making I preformed the quick note portion of this chart. Electronically signed by Erinn Marquez PA-C. Was pt. sent in by a medical professional or institution (DARIN Carlson, RELIGION DEPARTMENT CHAIR, urgent care, hospital, or intermediate...) When possible be specific @ -No Did you speak to anyone other than the patient for history (EMS, parent, family, police, friend...)? What history was obtained from this source @ -No Did you review nursing and triage notes (agree or disagree)? Why? @ -I reviewed and agree with nursing and triage notes Were old charts reviewed (outside hosp., previous admission, EMS record, old EKG, old radiological studies, urgent care reports/EKG's, intermediate records)? Report findings @ -No old charts were reviewed Differential Diagnosis (chest pain, altered mental status, abdominal pain women, abdominal pain men, vaginal bleeding, weakness, fever, dyspnea, syncope, headache, dizziness, GI bleed, back pain, seizure, CVA, palpatations, mental health, musculoskeletal)? @ -Differential Musculoskeletal Muscular strain, contusion, ligament sprain, fracture, arthritis, septic arthritis, bursitis, cellulitis, muscle spasm, nerve compression, DVT, arterial occlusion, herpes zoster, electrolyte abnormality, tumor.... This is not meant to be in all inclusive list EKG interpreted by me (3pts min.). @ -none X-rays interpreted by me (1pt min.). @ -None done CT interpreted by me (1pt min.). @ -None done U/S interpreted by me (1pt. min.). @ -None done What testing was considered but not performed or refused? (CT, X-rays, U/S, labs)? Why? @ -None What meds were considered but not given or refused? Why? @ -None Did you discuss the management of the patient with other professionals (professionals i.e. , PA, RELIGION DEPARTMENT CHAIR, lab, RT, psych nurse, social and human services assistant, psychological science professor, teacher, environmental technical officer, case hardener)? Give summary @ -No Was smoking cessation discussed for >3mins.? @ -No Was critical care preformed (if so, how long)? @ -No Were there social determinants of health that impacted care today? How? (Homelessness, low income, unemployed, alcoholism, drug addiction, tovar sportation, low edu. Level, literacy, decrease access to med. care, shelter, rehab)? @ -No Was there de-escalation of care discussed even if they declined (Discuss DNR or withdrawal of care, Hospice)? DNR status @ -No What co-morbidities impacted this encounter? (DM, HTN, Smoking, COPD, CAD, Cancer, CVA, ARF, Chemo, Hep., AIDS, mental health diagnosis, sleep apnea, morbid obesity)? @ -None Was patient admitted / discharged? Hospital course, mention meds given and route, prescriptions, significant lab abnormalities, going to OR and other pertinent info. @ -Discharged. Patient presented to emergency department chief complaint of right index finger laceration on a can. Patient's tetanus vaccination was updated. Wound was cleaned and exofin applied. Patient is found to be hypertensive in the emergency department. Patient has a history of hypertension and has not taken her nighttime medications at this time. Patient stable at time of discharge. Case discussed with Dr. Urbina Undiagnosed new problem with uncertain prognosis? @ -No Drug Therapy requiring intensive monitoring for toxicity (Heparin, Nitro, Insulin, Cardizem)? @ -No Were any procedures done? @ -No Diagnosis/symptom? @ -laceration Acute, or Chronic, or Acute on Chronic? @ -acute Uncomplicated (without systemic symptoms) or Complicated (systemic symptoms)? @ -uncomplicated Side effects of treatment? @ -[o]Exacerbation, Progression, or Severe Exacerbation? @ -[o]Poses a threat to life or bodily function? How? (Chest pain, [place], [place], pneumonia, PE, COPD, DKA, ARF, appy, cholecystitis, CVA, Diverticulitis, Homicidal, Suicidal, threat to staff... and all critical care pts) @ -[o] Disposition Clinical Impression: Laceration Disposition: HOME SELF-CARE Condition: Stable Instructions (If sedation given, give patient instructions): Skin Adhesive Care (ED) Additional Instructions: Please keep wound clean and dry. Follow up with your primary care provider. Return to the emergency department for new or worsening symptoms. Is patient prescribed a controlled substance at d/c from ED?: No Referrals: Josy Rodriguez MD [Primary Care Provider] - 1-2 days
[2023-10-01] MEDS ORDERED: TOPICAL SKIN ADHESIVE 1 EACH AMP TOPICAL ONE (20:03)
[2023-10-01 20:19] VITALS: RESP 18; TEMP 98.4
[2023-10-01 20:40] VITALS: BP 170/114; PULSE 88
== END 2023-10-01 20:44 | disposition home or self-care (01) ==
LOC: EC 17:56
DX: S61.210A Laceration without foreign body of right index finger without damage to nail, initial encounter (principal); E11.9 Type 2 diabetes mellitus without complications; I10 Essential (primary) hypertension; J45.909 Unspecified asthma, uncomplicated; G47.30 Sleep apnea, unspecified; F17.200 Nicotine dependence, unspecified, uncomplicated; Z79.4 Long term (current) use of insulin; Z79.84 Long term (current) use of oral hypoglycemic drugs; Z79.899 Other long term (current) drug therapy; Z23 Encounter for immunization; Z88.0 Allergy status to penicillin; Z88.6 Allergy status to analgesic agent; Z88.5 Allergy status to narcotic agent; Z88.8 Allergy status to other drugs, medicaments and biological substances; Z88.1 Allergy status to other antibiotic agents; W26.8XXA Contact with other sharp object(s), not elsewhere classified, initial encounter
CPT/HCPCS: 12001; 90471; 90715; 99282